=== PATIENT | male | born 1970 | race Caucasian/White ===

== ENCOUNTER 2016-08-05 11:08 | Emergency (ER) | payer OTHER ==
--- NOTE | 2016-08-05 14:00 | DIAGNOSTIC IMAGING REPORT ---
PROCEDURE: XR LUMBAR SPINE 2 OR 3 VIEWS INDICATION: TRAUMA/INJURY TECHNIQUE: Three views. COMPARISON: None. FINDINGS: Grade 1 L5-S1 anterolisthesis. No fracture. Loss of lordosis. Moderate L4-5 and L5-S1 disc space narrowing. Minor spur formation. Soft tissues are unremarkable . IMPRESSION: 1. Grade 1 L5-S1 anterolisthesis 2. Moderate L4-5 and L5-S1 disc space narrowing 3. Loss of lordosis
--- NOTE | 2016-08-05 14:03 | DIAGNOSTIC IMAGING REPORT ---
PROCEDURE: XR HIP 2VW W W/O AP PELVIS-RT INDICATION: TRAUMA/INJURY TECHNIQUE: AP view of the pelvis and hips with lateral view of the right hip. COMPARISON: None. FINDINGS: RIGHT HIP: Mild narrowing of the joint space with subchondral sclerosis and spur formation. No fracture dislocation. PELVIS: No suspicious osseous lesion. Soft tissues are unremarkable. IMPRESSION: 1. Mild right hip degenerative changes and joint space narrowing
--- NOTE | 2016-08-05 15:17 | ED NURSING NOTES ---
Clinical Report - Nurses [facility] [address] [place] [address] 08/05/2016 11:12 [id number] TRI[facility] Triage time 12:04. Acuity: LEVEL 3. Chief Complaint: FALL while walking, onto the ice. Alert. ANASTACIA COMA SCORE: Anastacia Coma Scale: 15- eyes open spontaneously (4); best verbal response- oriented x 4 (5); best motor response- obeys commands (6). --12:11 Mague Weaver R.N. 12:04 08/05/16. BP: 114/83. HR: 77. RR: 16. O2 saturation: 96%. Temp: 97.7 F (oral). Pain level now: 03/06. --12:11 Mague Wevaer R.N. Weight: 81.6 kg stated. Height/Length: 67 inches Per Patient. BMI: 28.2. --12:08 Mague Weaver R.N. Medications BuPROPion HCl Oral. Citalopram Hydrobromide Oral. ClonazePAM Oral. Coumadin Oral. Latuda Oral. Mirtazapine Oral. Simvastatin Oral. --12:06 Mague Weaver R.N. Allergies None. --12:06 Mague Weaver R.N. History Arrived by private vehicle. Historian: patient. Accompanied by friend. Primary physician (Priscilla). Location of injuries: back and right hip. This occurred yesterday. SOCIAL HX: Heavy tobacco smoker- less than 1 pack per day. History of drug use: methamphetamines. No alcohol use. FALL RISK ASSESSMENT: Fall risk assessment completed. No fall risk identified. FUNCTIONAL ASSESSMENT: Functional assessment: no impairments noted. LEARNING NEEDS ASSESSMENT: The learning needs assessment revealed no barriers. --12:11 Mague Weaver R.N. PROBLEMS: Myocardial Infarction. Hypercholesterolemia. Pulmonary Embolism. CAD. --12:08 Mague Weaver R.N. ADDITIONAL SURGERIES: Cardiac stents. --12:08 Mague Weaver R.N. Assessment ( pain increases with movement and walking). GENERAL / NEURO / PSYCH: The patient is awake and alert, is oriented and cooperative and appears uncomfortable. He has poor eye contact. RESPIRATORY: Respirations not labored. SKIN: Skin is warm and dry. --12:11 Mague Weaver R.N. Interventions ID band on patient. To waiting room. --12:11 Mague Weaver R.N. NURSING PROGRESS NOTES The patient is calm and resting quietly. GENERAL / NEURO / PSYCH: Alert. Oriented X 4. RESPIRATORY: No respiratory distress. CVS: Capillary refill less than 2 seconds. GI / : Abdomen nontender. EXTREMITIES: Neuro-vascular status intact to the extremity. --12:46 Jeremy Welch R.N. 12:46 08/05/16. BP: 118/82. HR: 68. RR: 16. O2 saturation: 96%. --12:46 Jeremy Welch R.N. Patient ID band checked for patient name and birthdate: patient confirmed. Blood samples drawn from the right antecubital space by tech per protocol ; labeled in presence of the patient and sent to lab: rainbow set and red, green, purple and blue top. --13:15 Laurie Cornelius ER [facility] Patient ID band checked for patient name and birthdate: patient confirmed. Instructions provided to collect clean catch urine and patient verbalized understanding. Clean catch urine collected with return of orange-colored urine; sample sent to lab for urinalysis, culture and drug screen. Specimen labeled in the presence of the patient. --13:16 Laurie Cornelius ER [facility] Patient transported to radiology by stretcher with tech. --13:33 Matilda Fernandez R.N. 13:45 08/05/16. Patient returned from radiology by stretcher with tech. --13:45 Jackie Fernandes R.N. DISPOSITION / DISCHARGE Condition at departure: improved. The goals identified in the patient's plan of care were met. No learning barriers present. Discharge instructions provided and reviewed with the patient and spouse. Reviewed medication(s) side effects, precautions, dosing and course information. Prescription(s) given to the patient. Patient verbalized understanding. Written instructions provided in Kinyarwanda. The patient was discharged home and accompanied by spouse and family. He left the Emergency Department ambulatory and via private vehicle. Family member driving. FALL RISK ASSESSMENT: Fall risk assessment completed. No fall risk identified. --15:46 Jeremy Welch R.N. 15:45 08/05/16. BP: 114/80. HR: 78. RR: 16. O2 saturation: 100%. Temp: 98.2 F (oral). Pain level now: 12/04. --15:46 Jeremy Welch R.N. Departure time: 1546 AM PM. --15:46 Jeremy Welch R.N. Locked/Released at 08/05/2016 15:46 by Jeremy Welch R.N.
--- NOTE | 2016-08-05 15:17 | ED CLINICAL REPORT ---
Clinical Report - Physicians/Mid Levels [facility] [address] [place] [address] 08/05/2016 11:12 [id number] Time Seen: 12:53 Aug 05 2016. Arrived- By private vehicle. Historian- patient. CPT: ER phys charges level 3 (#[id number]). HISTORY OF PRESENT ILLNESS Chief Complaint: INJURY TO LOWER BACK and RIGHT LOWER EXTREMITY (HIP). Location of injuries- lower back and right hip. The injury occurred just prior to arrival. Occurred at home. ( Worried about bleeding due to being on coumadin.). Fell while standing and landed on the ground; slipped. The patient complains of moderate pain. No blow to the head, neck pain or loss of consciousness. Not dazed. REVIEW OF SYSTEMS The patient complains of pain on weight bearing. No numbness, dizziness, chest pain, difficulty breathing or weakness. No headache, nausea, abdominal pain or laceration. All systems otherwise negative, except as recorded above. PAST HISTORY Myocardial Infarction. Hypercholesterolemia. Pulmonary Embolism. CAD. ADDITIONAL SURGERIES: Cardiac stents. Medications: BuPROPion HCl Oral. Citalopram Hydrobromide Oral. ClonazePAM Oral. Coumadin Oral. Latuda Oral. Mirtazapine Oral. Simvastatin Oral. Allergies: None. SOCIAL HISTORY Heavy tobacco smoker (cigarette)- less than 1 pack per day. History of drug use: methamphetamines. No alcohol use. ADDITIONAL NOTES The nursing notes have been reviewed. PHYSICAL EXAM Vital Signs: 08/05/2016 12:04 BP: 114/83. HR: 77. RR: 16. O2 saturation: 96%. Temp: 97.7 F. Pain level now: 8/10. Appearance: Alert. Patient in mild distress. Head: Head non-tender. No swelling of head. Eyes: Pupils equal, round and reactive to light. EOM intact. ENT: No dental injury. Pharynx normal. Neck: Painless ROM. Non-tender. CVS: Heart sounds normal. Pulses normal. Respiratory: Breath sounds normal. Chest nontender. Abdomen: No visible injury. Soft and nontender. Bowel sounds normal. Back: Moderate soft-tissue tenderness in the right lower and left lower lumbar area. Skin: Skin intact. Skin warm. Normal skin color. Extremities: Pelvis stable. Right hip: moderate tenderness located in the lateral aspect of the hip. Limited ROM secondary to pain (diminished external and internal rotation). Neurovascular intact distally. No swelling, laceration, abrasion, ecchymosis or deformity. Neuro: Oriented X 3. No motor deficit. No sensory deficit. Reflexes normal. LABS, X-RAYS, AND EKG X-Rays: Right hip negative. LS-Spine X-rays: Degenerative joint disease. Views: AP, lateral and coned down view. Technique: good. The X-rays were independently viewed by me and interpreted contemporaneously by me. Laboratory Tests: CBC w Diff: (BREE: 08/05/2016 13:10) ( [facility] Final results Test Result Flag Units (Reference) WHITE BLOOD COUNT 8.2 K/uL (4.5-11.5) RED BLOOD COUNT 4.39 L M/uL (4.50-5.90) HEMOGLOBIN 14.1 gm/dL (13.5-17.5) HEMATOCRIT 42.8 % (41.0-53.0) MEAN CELL VOLUME 98 fL (80-100) MEAN CORPUSCULAR HGB 32 pg (26-34) MEAN CORPUSCULAR HGB CONC 33 g/dL (31-37) RED CELL DISTRIBUTION WIDTH 14.1 % (11.6-14.8) PLATELET COUNT 261 K/uL (150-400) NEUTROPHIL % 48.3 L % (50-75) LYMPH % 39.5 % (25-40) MONO % 9.7 % (3-14) EOSINOPHIL % 2.0 % (0-4) BASOPHIL % 0.5 % (0-2) PT with INR: (BREE: 08/05/2016 13:10) ( MsgRcvd 08/05/2016 13:29) Final results Test Result Flag Units (Reference) INR 1.8 H (0.8-1.2) Low Intensity Therapy: INR 1.5-2.0 PT range 18.5-23.1Mod.Intensity Therapy: INR 2.0-3.0 PT range 23.1-31.5High Intensity Therapy: INR 2.5-3.5 PT range 27.4-35.5High Intensity Therapy 2: INR 3.0-4.0 PT range 31.5-39.3 . PROGRESS AND PROCEDURES Patient/family counseled. Disposition: Discharged. Condition: stable. CLINICAL IMPRESSION Contusion to the lower back and right hip. Fall on same level by slipping. DJD low back and right hip Therapeutic INR at 1.8. INSTRUCTIONS Apply ice for 15-20 minutes three times a day for one days followed by moist heat 15-20 minutes three times a day for three days until better. Your Current Medications: CONTINUE TAKING THE FOLLOWING MEDICATIONS: BuPROPion HCl Oral. Citalopram Hydrobromide Oral. ClonazePAM Oral. Coumadin Oral. Latuda Oral. Mirtazapine Oral. Simvastatin Oral. Prescription Medications: Flexeril 5 mg: take 1 orally every 8 hours as needed for muscle spasm or pain. Dispense fifteen (15). No refills. Substitution is permissible. Oxycodone/APAP 5 mg/325 mg: take 1 tablet orally every 6 hours as needed for pain. Dispense fifteen (15). No refills. Follow-up: Follow up with your doctor in one week. Call for an appointment. Understanding of the discharge instructions verbalized by patient and family. (Electronically signed by Joao Cheng MD 08/06/2016 21:22)
--- NOTE | 2016-08-05 15:17 | ED ORDER SUMMARY ---
..... Patient: JOHANNY MCDUFFIE OrderSheet [facility] VisitID: [id number] [address] [place] [address] 46y, M Registration Date/Time: 08/05/2016 ORDER SHEET Weight: 81.6 kg (stated) Allergies: None GENERAL ORDERS: Lumbar Spine 2 or 3V Urgent (12:57 08/05/2016 Conrad LOBO) (Ack 13:05 NHouse ER Tech1) (13:45 DDean R.N.) Hip 2V Right w AP Pelvis Urgent (12:58 08/05/2016 Conrad LOBO) (Ack 13:05 NHouse ER Tech1) (13:45 DDean R.N.) PT with INR Urgent (12:58 08/05/2016 Conrad LOBO) (Ack 13:05 NHouse ER Tech1) (13:51 NHouse ER Tech1) CBC w Diff Urgent (12:58 08/05/2016 Conrad LOBO) (Ack 13:05 NHouse ER Tech1) (13:51 NHouse ER Tech1) MEDICATION ORDERS: IV FLUIDS: ORDER SHEET NOTES: [Electronically signed by Jeremy Welch R.N. (15:46 08/05/2016)] [Electronically signed by Joao Cheng MD (21:22 08/06/2016)] [Electronically locked/signed by Jeremy Welch R.N. (15:46 08/05/2016)]
--- NOTE | 2016-08-05 15:17 | ED ORDER SUMMARY ---
..... Patient: JOHANNY MCDUFFIE OrderSheet [facility] VisitID: [id number] [address] [place] [address] 46y, M Registration Date/Time: 08/05/2016 ORDER SHEET Weight: 81.6 kg (stated) Allergies: None GENERAL ORDERS: Lumbar Spine 2 or 3V Urgent (12:57 08/05/2016 Conrad LOBO) (Ack 13:05 NHouse ER Tech1) (13:45 DDean R.N.) Hip 2V Right w AP Pelvis Urgent (12:58 08/05/2016 Conrad LOBO) (Ack 13:05 NHouse ER Tech1) (13:45 DDean R.N.) PT with INR Urgent (12:58 08/05/2016 Conrad LOBO) (Ack 13:05 NHouse ER Tech1) (13:51 NHouse ER Tech1) CBC w Diff Urgent (12:58 08/05/2016 Conrad LOBO) (Ack 13:05 NHouse ER Tech1) (13:51 NHouse ER Tech1) MEDICATION ORDERS: IV FLUIDS: ORDER SHEET NOTES: [Electronically signed by Jeremy Welch R.N. (15:46 08/05/2016)] [Electronically signed by Joao Cheng MD (21:22 08/06/2016)] [Electronically locked/signed by Jeremy Welch R.N. (15:46 08/05/2016)]
--- NOTE | 2016-08-05 15:17 | ED NURSING NOTES ---
Clinical Report - Nurses [facility] [address] [place] [address] 08/05/2016 11:12 [id number] TRI[facility] Triage time 12:04. Acuity: LEVEL 3. Chief Complaint: FALL while walking, onto the ice. Alert. ANASTACIA COMA SCORE: Anastacia Coma Scale: 15- eyes open spontaneously (4); best verbal response- oriented x 4 (5); best motor response- obeys commands (6). --12:11 Mague Weaver R.N. 12:04 08/05/16. BP: 114/83. HR: 77. RR: 16. O2 saturation: 96%. Temp: 97.7 F (oral). Pain level now: 03/06. --12:11 Mague Weaver R.N. Weight: 81.6 kg stated. Height/Length: 67 inches Per Patient. BMI: 28.2. --12:08 Mague Weaver R.N. Medications BuPROPion HCl Oral. Citalopram Hydrobromide Oral. ClonazePAM Oral. Coumadin Oral. Latuda Oral. Mirtazapine Oral. Simvastatin Oral. --12:06 Mague Weaver R.N. Allergies None. --12:06 Mague Weaver R.N. History Arrived by private vehicle. Historian: patient. Accompanied by friend. Primary physician (Priscilla). Location of injuries: back and right hip. This occurred yesterday. SOCIAL HX: Heavy tobacco smoker- less than 1 pack per day. History of drug use: methamphetamines. No alcohol use. FALL RISK ASSESSMENT: Fall risk assessment completed. No fall risk identified. FUNCTIONAL ASSESSMENT: Functional assessment: no impairments noted. LEARNING NEEDS ASSESSMENT: The learning needs assessment revealed no barriers. --12:11 Mague Weaver R.N. PROBLEMS: Myocardial Infarction. Hypercholesterolemia. Pulmonary Embolism. CAD. --12:08 Mague Weaver R.N. ADDITIONAL SURGERIES: Cardiac stents. --12:08 Mague Weaver R.N. Assessment ( pain increases with movement and walking). GENERAL / NEURO / PSYCH: The patient is awake and alert, is oriented and cooperative and appears uncomfortable. He has poor eye contact. RESPIRATORY: Respirations not labored. SKIN: Skin is warm and dry. --12:11 Mague Weaver R.N. Interventions ID band on patient. To waiting room. --12:11 Mague Weaver R.N. NURSING PROGRESS NOTES The patient is calm and resting quietly. GENERAL / NEURO / PSYCH: Alert. Oriented X 4. RESPIRATORY: No respiratory distress. CVS: Capillary refill less than 2 seconds. GI / : Abdomen nontender. EXTREMITIES: Neuro-vascular status intact to the extremity. --12:46 Jeremy Welch R.N. 12:46 08/05/16. BP: 118/82. HR: 68. RR: 16. O2 saturation: 96%. --12:46 Jeremy Welch R.N. Patient ID band checked for patient name and birthdate: patient confirmed. Blood samples drawn from the right antecubital space by tech per protocol ; labeled in presence of the patient and sent to lab: rainbow set and red, green, purple and blue top. --13:15 Laurie Cornelius ER [facility] Patient ID band checked for patient name and birthdate: patient confirmed. Instructions provided to collect clean catch urine and patient verbalized understanding. Clean catch urine collected with return of orange-colored urine; sample sent to lab for urinalysis, culture and drug screen. Specimen labeled in the presence of the patient. --13:16 Laurie Cornelius ER [facility] Patient transported to radiology by stretcher with tech. --13:33 Matilda Fernandez R.N. 13:45 08/05/16. Patient returned from radiology by stretcher with tech. --13:45 Jackie Fernandes R.N. DISPOSITION / DISCHARGE Condition at departure: improved. The goals identified in the patient's plan of care were met. No learning barriers present. Discharge instructions provided and reviewed with the patient and spouse. Reviewed medication(s) side effects, precautions, dosing and course information. Prescription(s) given to the patient. Patient verbalized understanding. Written instructions provided in Uzbek. The patient was discharged home and accompanied by spouse and family. He left the Emergency Department ambulatory and via private vehicle. Family member driving. FALL RISK ASSESSMENT: Fall risk assessment completed. No fall risk identified. --15:46 Jeremy Welch R.N. 15:45 08/05/16. BP: 114/80. HR: 78. RR: 16. O2 saturation: 100%. Temp: 98.2 F (oral). Pain level now: 12/04. --15:46 Jeremy Welch R.N. Departure time: 1546 AM PM. --15:46 Jeremy Welch R.N. Locked/Released at 08/05/2016 15:46 by Jeremy Welch R.N.
--- NOTE | 2016-08-05 15:17 | ED CLINICAL REPORT ---
Clinical Report - Physicians/Mid Levels [facility] [address] [place] [address] 08/05/2016 11:12 [id number] Time Seen: 12:53 Aug 05 2016. Arrived- By private vehicle. Historian- patient. CPT: ER phys charges level 3 (#[id number]). HISTORY OF PRESENT ILLNESS Chief Complaint: INJURY TO LOWER BACK and RIGHT LOWER EXTREMITY (HIP). Location of injuries- lower back and right hip. The injury occurred just prior to arrival. Occurred at home. ( Worried about bleeding due to being on coumadin.). Fell while standing and landed on the ground; slipped. The patient complains of moderate pain. No blow to the head, neck pain or loss of consciousness. Not dazed. REVIEW OF SYSTEMS The patient complains of pain on weight bearing. No numbness, dizziness, chest pain, difficulty breathing or weakness. No headache, nausea, abdominal pain or laceration. All systems otherwise negative, except as recorded above. PAST HISTORY Myocardial Infarction. Hypercholesterolemia. Pulmonary Embolism. CAD. ADDITIONAL SURGERIES: Cardiac stents. Medications: BuPROPion HCl Oral. Citalopram Hydrobromide Oral. ClonazePAM Oral. Coumadin Oral. Latuda Oral. Mirtazapine Oral. Simvastatin Oral. Allergies: None. SOCIAL HISTORY Heavy tobacco smoker (cigarette)- less than 1 pack per day. History of drug use: methamphetamines. No alcohol use. ADDITIONAL NOTES The nursing notes have been reviewed. PHYSICAL EXAM Vital Signs: 08/05/2016 12:04 BP: 114/83. HR: 77. RR: 16. O2 saturation: 96%. Temp: 97.7 F. Pain level now: 8/10. Appearance: Alert. Patient in mild distress. Head: Head non-tender. No swelling of head. Eyes: Pupils equal, round and reactive to light. EOM intact. ENT: No dental injury. Pharynx normal. Neck: Painless ROM. Non-tender. CVS: Heart sounds normal. Pulses normal. Respiratory: Breath sounds normal. Chest nontender. Abdomen: No visible injury. Soft and nontender. Bowel sounds normal. Back: Moderate soft-tissue tenderness in the right lower and left lower lumbar area. Skin: Skin intact. Skin warm. Normal skin color. Extremities: Pelvis stable. Right hip: moderate tenderness located in the lateral aspect of the hip. Limited ROM secondary to pain (diminished external and internal rotation). Neurovascular intact distally. No swelling, laceration, abrasion, ecchymosis or deformity. Neuro: Oriented X 3. No motor deficit. No sensory deficit. Reflexes normal. LABS, X-RAYS, AND EKG X-Rays: Right hip negative. LS-Spine X-rays: Degenerative joint disease. Views: AP, lateral and coned down view. Technique: good. The X-rays were independently viewed by me and interpreted contemporaneously by me. Laboratory Tests: CBC w Diff: (BREE: 08/05/2016 13:10) ( [facility] [place] 13:21[facility] Final results Test Result Flag Units (Reference) WHITE BLOOD COUNT 8.2 K/uL (4.5-11.5) RED BLOOD COUNT 4.39 L M/uL (4.50-5.90) HEMOGLOBIN 14.1 gm/dL (13.5-17.5) HEMATOCRIT 42.8 % (41.0-53.0) MEAN CELL VOLUME 98 fL (80-100) MEAN CORPUSCULAR HGB 32 pg (26-34) MEAN CORPUSCULAR HGB CONC 33 g/dL (31-37) RED CELL DISTRIBUTION WIDTH 14.1 % (11.6-14.8) PLATELET COUNT 261 K/uL (150-400) NEUTROPHIL % 48.3 L % (50-75) LYMPH % 39.5 % (25-40) MONO % 9.7 % (3-14) EOSINOPHIL % 2.0 % (0-4) BASOPHIL % 0.5 % (0-2) PT with INR: (BREE: 08/05/2016 13:10) ( MsgRcvd 08/05/2016 13:29) Final results Test Result Flag Units (Reference) INR 1.8 H (0.8-1.2) Low Intensity Therapy: INR 1.5-2.0 PT range 18.5-23.1Mod.Intensity Therapy: INR 2.0-3.0 PT range 23.1-31.5High Intensity Therapy: INR 2.5-3.5 PT range 27.4-35.5High Intensity Therapy 2: INR 3.0-4.0 PT range 31.5-39.3 . PROGRESS AND PROCEDURES Patient/family counseled. Disposition: Discharged. Condition: stable. CLINICAL IMPRESSION Contusion to the lower back and right hip. Fall on same level by slipping. DJD low back and right hip Therapeutic INR at 1.8. INSTRUCTIONS Apply ice for 15-20 minutes three times a day for one days followed by moist heat 15-20 minutes three times a day for three days until better. Your Current Medications: CONTINUE TAKING THE FOLLOWING MEDICATIONS: BuPROPion HCl Oral. Citalopram Hydrobromide Oral. ClonazePAM Oral. Coumadin Oral. Latuda Oral. Mirtazapine Oral. Simvastatin Oral. Prescription Medications: Flexeril 5 mg: take 1 orally every 8 hours as needed for muscle spasm or pain. Dispense fifteen (15). No refills. Substitution is permissible. Oxycodone/APAP 5 mg/325 mg: take 1 tablet orally every 6 hours as needed for pain. Dispense fifteen (15). No refills. Follow-up: Follow up with your doctor in one week. Call for an appointment. Understanding of the discharge instructions verbalized by patient and family. (Electronically signed by Joao Cheng MD 08/06/2016 21:22)
--- NOTE | 2016-08-06 21:22 | ED MED RECONCILIATION SUMMARY ---
Patient: JOHANNY MCDUFFIE Medication Reconciliation Report [facility] VisitID: [id number] [address] [place] [address] 46y, M Registration Date/Time: 08/05/2016 Weight: 81.6 kg Height/Length: 67 in. BMI: 28.2 ALLERGIES: None The patient's Home Medications are listed below: CONTINUE TAKING THE FOLLOWING MEDICATIONS: BuPROPion HCl Oral Citalopram Hydrobromide Oral ClonazePAM Oral Coumadin Oral Latuda Oral Mirtazapine Oral Simvastatin Oral The source(s) of the original Home Medication information: Not obtained. The following Medications were given to the patient in the Emergency Department: None. The following Medications were prescribed to the patient: Flexeril 5 mg: take 1 orally every 8 hours as needed for muscle spasm or pain. Dispense fifteen (15). No refills. Substitution is permissible. -- Joao Cheng MD Oxycodone/APAP 5 mg/325 mg: take 1 tablet orally every 6 hours as needed for pain. Dispense fifteen (15). No refills. -- Joao Cheng MD
--- NOTE | 2016-08-06 21:22 | ED MED RECONCILIATION SUMMARY ---
Patient: JOHANNY MCDUFFIE Medication Reconciliation Report [facility] VisitID: [id number] [address] [place] [address] 46y, M Registration Date/Time: 08/05/2016 Weight: 81.6 kg Height/Length: 67 in. BMI: 28.2 ALLERGIES: None The patient's Home Medications are listed below: CONTINUE TAKING THE FOLLOWING MEDICATIONS: BuPROPion HCl Oral Citalopram Hydrobromide Oral ClonazePAM Oral Coumadin Oral Latuda Oral Mirtazapine Oral Simvastatin Oral The source(s) of the original Home Medication information: Not obtained. The following Medications were given to the patient in the Emergency Department: None. The following Medications were prescribed to the patient: Flexeril 5 mg: take 1 orally every 8 hours as needed for muscle spasm or pain. Dispense fifteen (15). No refills. Substitution is permissible. -- Joao Cheng MD Oxycodone/APAP 5 mg/325 mg: take 1 tablet orally every 6 hours as needed for pain. Dispense fifteen (15). No refills. -- Joao Cheng MD
--- NOTE | 2016-08-06 21:22 | ED DISCHARGE INSTRUCTIONS ---
Patient: JOHANNY MCDUFFIE General Instructions [facility] VisitID: [id number] [place] [address] 46y, M Registration Date/Time: 08/05/2016 Contusion to the lower back and right hip. Fall on same level by slipping. DJD low back and right hip Therapeutic INR at 1.8. INSTRUCTIONS Apply ice for 15-20 minutes three times a day for one days followed by moist heat 15-20 minutes three times a day for three days until better. Your Current Medications: CONTINUE TAKING THE FOLLOWING MEDICATIONS: BuPROPion HCl Oral. Citalopram Hydrobromide Oral. ClonazePAM Oral. Coumadin Oral. Latuda Oral. Mirtazapine Oral. Simvastatin Oral. Prescription Medications: Flexeril 5 mg: take 1 orally every 8 hours as needed for muscle spasm or pain. Dispense fifteen (15). No refills. Substitution is permissible. Oxycodone/APAP 5 mg/325 mg: take 1 tablet orally every 6 hours as needed for pain. Dispense fifteen (15). No refills. Follow-up: Follow up with your doctor in one week. Call for an appointment. Understanding of the discharge instructions verbalized by patient and family. ADDITIONAL INFORMATION Mechanical Fall You have had a fall today. It appears that the cause is mechanical. That means that you slipped, tripped or lost your balance. If your fall had been due to fainting or a seizure, further tests would be required. Home Care: Rest today and resume your normal activities when you are feeling back to normal. If you were injured during the fall, follow the advice from your doctor regarding care of your injury. You may use acetaminophen (Tylenol) or ibuprofen (Motrin, Advil) to control pain, unless another pain medicine was prescribed. [NOTE: If you have chronic liver or kidney disease or ever had a stomach ulcer or GI bleeding, talk with your doctor before using these medicines.] Fall Prevention: Was there anything that caused your fall that can be fixed, removed, or replaced? Make your home safe by keeping walkways clear of objects you may trip over. Use non-slip pads under rugs. Do not walk in poorly lit areas. Do not stand on chairs or wobbly ladders. Use caution when reaching overhead or looking upward. This position can cause a loss of balance. Be sure your shoes fit properly, have non-slip bottoms and are in good condition. Be cautious when going up and down curbs, and walking on uneven sidewalks. If your balance is poor, consider using a cane or walker. Stay as active as you can. Balance, flexibility, strength, and endurance all come from exercise. They all play a role in preventing falls. Follow Up with your doctor or as advised by our staff. Get Prompt Medical Attention if any of the following occur: Repeated mechanical falls, or unexplained falls Dizziness, fainting or seizure Severe headache Chest pain or shortness of breath Palpitations (very rapid or very slow or irregular heartbeat) Blood in vomit, stools (black or red color) Weakness of an arm or leg or one side of the face Difficulty with speech or vision Contusion,Soft Tissue You have a CONTUSION, which is a bruise with swelling and some bleeding under the skin. There are no broken bones. This injury takes a few days to a few weeks to heal. Home Care: 1) Keep the injured part elevated to reduce pain and swelling. This is especially important during the first 48 hours. 2) Make an ice pack (ice cubes in a plastic bag, wrapped in a towel) and apply for 20 minutes every 1-2 hours the first day. Continue this 3-4 times a day until the pain and swelling goes away. 3) You may use acetaminophen (Tylenol) or ibuprofen (Motrin, Advil) to control pain, unless another pain medicine was prescribed. [ NOTE : If you have chronic liver or kidney disease or ever had a stomach ulcer or GI bleeding, talk with your doctor before using these medicines.] Follow Up with your doctor or this facility if you are not improving within the next THREE days. [NOTE: If X-rays were taken, they will be reviewed by a radiologist. You will be notified of any new findings that may affect your care.] Get Prompt Medical Attention if any of the following occur: -- Pain or swelling increases -- Injured arm or leg becomes cold, blue, numb or tingly -- Redness, warmth or drainage from the skin Cyclobenzaprine Hydrochloride Oral tablet What is this medicine? CYCLOBENZAPRINE (alfredo bhakta) is a muscle relaxer. It is used to treat muscle pain, spasms, and stiffness. How should I use this medicine? Take this medicine by mouth with a glass of water. Follow the directions on the prescription label. If this medicine upsets your stomach, take it with food or milk. Take your medicine at regular intervals. Do not take it more often than directed. Talk to your adjunct mathematics instructor regarding the use of this medicine in children. Special care may be needed. What side effects may I notice from receiving this medicine? Side effects that you should report to your doctor or health respiratory care practitioner as soon as possible: allergic reactions like skin rash, itching or hives, swelling of the face, lips, or tongue chest pain fast heartbeat hallucinations seizures vomiting Side effects that usually do not require medical attention (report to your doctor or health respiratory care practitioner if they continue or are bothersome): headache What may interact with this medicine? Do not take this medicine with any of the following medications: cisapride droperidol flecainide grepafloxacin halofantrine levomethadyl MAOIs like Carbex, Eldepryl, Marplan, Nardil, and Parnate nilotinib pimozide probucol sertindole This medicine may also interact with the following medications: abarelix alcohol contrast dyes dolasetron guanethidine medicines for cancer medicines for depression, anxiety, or psychotic disturbances medicines to treat an irregular heartbeat medicines used for sleep or numbness during surgery or procedure methadone octreotide ondansetron palonosetron phenothiazines like chlorpromazine, mesoridazine, prochlorperazine, thioridazine some medicines for infection like alfuzosin, chloroquine, clarithromycin, levofloxacin, mefloquine, pentamidine, troleandomycin tramadol vardenafil What if I miss a dose? If you miss a dose, take it as soon as you can. If it is almost time for your next dose, take only that dose. Do not take double or extra doses. Where should I keep my medicine? Keep out of the reach of children. Store at room temperature between 15 and 30 degrees C (59 and 86 degrees F). Keep container tightly closed. Throw away any unused medicine after the expiration date. What should I tell my health care provider before I take this medicine? They need to know if you have any of these conditions: heart disease, irregular heartbeat, or previous heart attack liver disease thyroid problem an unusual or allergic reaction to cyclobenzaprine, tricyclic antidepressants, lactose, other medicines, foods, dyes, or preservatives or trying to get breast-feeding What should I watch for while using this medicine? Check with your doctor or health respiratory care practitioner if your condition does not improve within 1 to 3 weeks. You may get drowsy or dizzy when you first start taking the medicine or change doses. Do not drive, use machinery, or do anything that may be dangerous until you know how the medicine affects you. Stand or sit up slowly. Your mouth may get dry. Drinking water, chewing sugarless gum, or sucking on hard candy may help. You have been given the following additional information: Fall, Mechanical Contusion, Soft Tissue Cyclobenzaprine Hydrochloride Oral tablet (Electronically signed by Joao Cheng MD 08/06/2016 21:22)
--- NOTE | 2016-08-06 21:22 | ED MAR SUMMARY ---
..... Medication Administration Record [facility] [address] [place], [place] [id number] Patient: JOHANNY MCDUFFIE Gabrielle Visit ID: [id number] 46y, M Weight: 81.6 kg Height/Length: 67 in BMI: 28.2 ALLERGIES: None
--- NOTE | 2016-08-06 21:22 | ED MAR SUMMARY ---
..... Medication Administration Record [facility] [address] [place] [id number] Patient: JOHANNY MCDUFFIE Gabrielle Visit ID: [id number] 46y, M Weight: 81.6 kg Height/Length: 67 in BMI: 28.2 ALLERGIES: None
== END 2016-08-05 15:46 | disposition home or self-care (01) ==
LOC: ED SRH 11:08
DX: S30.0XXA Contusion of lower back and pelvis, initial encounter (principal); S70.01XA Contusion of right hip, initial encounter; W01.0XXA Fall on same level from slipping, tripping and stumbling without subsequent striking against object, initial encounter; Y92.009 Unspecified place in unspecified non-institutional (private) residence as the place of occurrence of the external cause; M16.11 Unilateral primary osteoarthritis, right hip; M48.36 Traumatic spondylopathy, lumbar region; I25.2 Old myocardial infarction; E78.00 Pure hypercholesterolemia, unspecified